=== PATIENT | male | born 1975 ===

== ENCOUNTER → 2017-09-20 | Emergency (ER) | payer OTHER ==
[~2017-09-20] VITALS: Ht 180.3 cm; Wt 74.8 kg
[~2017-09-20] MED LIST: BICARSIM FORTE125 MG PO; LEVSIN/SL0.125 MG SL
== END | disposition left against medical advice (07) ==
LOC: ER 19:01
DX: Z53.20 Procedure and treatment not carried out because of patient's decision for unspecified reasons (principal)

== ENCOUNTER 2018-05-30 15:57 | Emergency (ER) | payer OTHER ==
[~2018-05-30] VITALS: Ht 180.3 cm; Wt 72.6 kg
== END 2018-05-30 19:26 | disposition home or self-care (01) ==
LOC: ER 15:57
DX: R10.31 Right lower quadrant pain (principal)

== ENCOUNTER 2023-11-22 07:16 | Outpatient (CLI) | payer OTHER | END 2023-11-22 07:23 | disposition home or self-care (01) | LOC: SONOGRAMA 07:16 | PROVIDERS: ATTEND Emergency Medicine Pediatric Emergency Medicine | DX: I10 Essential (primary) hypertension (principal); E55.9 Vitamin D deficiency, unspecified; M89.9 Disorder of bone, unspecified; N40.0 Benign prostatic hyperplasia without lower urinary tract symptoms; K40.90 Unilateral inguinal hernia, without obstruction or gangrene, not specified as recurrent; Z91.013 Allergy to seafood; Z91.030 Bee allergy status ==